=== PATIENT | male | born 1955 | race Caucasian/White ===

== ENCOUNTER → 2021-04-26 | Outpatient (CLI) | payer MEDICARE, OTHER ==
[~2021-04-26] MED LIST: CLOPIDOGREL75 MG PO; FERROUS SULFAT325 MG PO; GLUCOPHAGE 500500 MG GT; LISINOPRIL10 MG PO; VOLTAREN EC 5050 MG PO
== END ==
LOC: RAD 08:00
DX: R13.10 Dysphagia, unspecified (principal); K22.89 Other specified disease of esophagus
CPT/HCPCS: 74220

== ENCOUNTER → 2021-05-12 | Outpatient (CLI) | payer MEDICARE, OTHER | LOC: KOH-I 08:45 | DX: R13.10 Dysphagia, unspecified (principal) | CPT/HCPCS: 70490 ==